=== PATIENT | female | born 1965 | race Caucasian/White ===

== ENCOUNTER 2017-08-08 10:57 | Emergency (ER) | payer SELFPAY ==
[~2017-08-08] VITALS: Ht 167.6 cm; Wt 117.9 kg
[~2017-08-08 10:57] MED LIST: ACCUNEB 0.1.25 MG/1 INH; ANAPROX DS550 MG PO; ATIVAN1 MG; ATIVAN1 MG PO; BENZTROPINE2 MG PO; BUPROPION HCL150 MG; CELEXA40 MG; CIPRO500 MG PO; DAYPRO600 M1 PO; DOXYCYCLINE100 M3 PO; FIORICET 325 MG1 TAB PO; FLAGYL500 MG PO; FLEXERIL10 MG PO; GEODON20 M1 PO; IMITREX20 MG NS; LAMICTAL100 MG PO; LOMOTIL 0.025 M1 TAB PO; MEDROL DOSEPAK4 MG PO; MOTRIN600 MG PO; MOTRIN800 MG PO; NEURONTIN600 MG PO; PRAVACHOL40 MG PO; PREDNISONE20 MG PO; PRILOSEC20 MG PO; PROVERA10 MG PO; ROBITUSSIN AC 110 ML PO; SAPHRIS10 MG SL; SEROQUEL300 MG PO; SOMA350 MG PO; SYNTHROID0.15 MG PO; SYNTHROID0.175 MG PO; TOPAMAX100 MG PO; TOPAMAX50 MG; VICODIN 500 MG-1 TAB PO; VICODIN ES 7501 TAB PO; ZOFRAN ODT4 MG SL; Zofran4 MG PO; [UNRECOGNIZED DRUG - OTHER]
[2017-08-08 11:06] VITALS: BP 154/84
[2017-08-08 11:44] LABS: BASO # 0.1 10*3/uL (0.0-0.1); BASO % 0.7 % (0.0-1.0); EOS # 0.1 10*3/uL (0.0-0.4); HEMATOCRIT 44.3 % (37.0-47.0); HEMOGLOBIN 14.6 g/dl (12.0-16.0); LYMPH # 2.8 10*3/uL (1.3-4.4); LYMPH % 22.7 % (27.0-41.0); MEAN CELL VOLUME 93.9 fl (81.0-99.0); MEAN CORPUSCULAR HGB 30.9 pg (27.0-31.0); MEAN PLATELET VOLUME 10.8 fl (9.6-12.3); MONO # 0.5 10*3/uL (0.1-1.0); MONO % 4.2 % (3.0-9.0); NEUT # 8.7 10*3/uL (2.3-7.9); NEUT % 70.7 % (47.0-73.0); PLATELET COUNT AUTOMATED 243 10*3/uL (130-400); RED BLOOD COUNT 4.72 10*6/uL (4.10-5.10); WHITE BLOOD COUNT 12.2 10*3/uL (4.8-10.8)
[2017-08-08 11:53] LABS: ACT PARTIAL THROMBO TIME 27.4 SECONDS (20.8-31.5)
[2017-08-08 12:02] LABS: ALBUMIN 3.7 gm/dl (3.1-4.5); ALKALINE PHOSPHATASE 84 U/L (45-117); BUN 4 mg/dl (7-24); CHLORIDE 105 mmol/L (98-107); CREATININE 0.96 mg/dL (0.55-1.02); LIPASE 106 U/L (73-393); MAGNESIUM 2.2 mg/dL (1.5-2.1); POTASSIUM 3.2 mmol/L (3.5-5.1); SGOT/AST 17 IU/L (3-35); SGPT/ALT 24 U/L (12-78); SODIUM 140 mmol/L (136-145)
[2017-08-08 12:16] LABS: TROPONIN I < 0.015 ng/ml (<0.045)
[2017-08-08 14:03] LABS: BILIRUBIN NEGATIVE (NEGATIVE); BLOOD TRACE-INTACT (NEGATIVE); CLARITY CLEAR (CLEAR); COLOR YELLOW (YELLOW); GLUCOSE NEGATIVE (NEGATIVE); KETONE NEGATIVE (NEGATIVE); LEUKO ESTERASE NEGATIVE (NEGATIVE); NITRITE NEGATIVE (NEGATIVE); PH 5.5 (5.0-9.0); SPECIFIC GRAVITY <= 1.005 (1.005-1.030); UROBILINOGEN 0.2 E.U./dl (0.2-1.0)
[2017-08-08 14:10] LABS: RBC 0-2 rbc/hpf (0-2)
[2017-08-08 14:11] LABS: BACTERIA 2+
[2017-08-08] MEDS ORDERED: PHENERGAN25 M3 PO (14:30)
== END 2017-08-08 15:15 | disposition home or self-care (01) ==
LOC: ED 10:57
PROVIDERS: Family Medicine Adult Medicine
DX: K52.9 Noninfective gastroenteritis and colitis, unspecified (principal); E03.9 Hypothyroidism, unspecified; E11.9 Type 2 diabetes mellitus without complications; J44.9 Chronic obstructive pulmonary disease, unspecified; F17.200 Nicotine dependence, unspecified, uncomplicated; Z88.2 Allergy status to sulfonamides; Z88.1 Allergy status to other antibiotic agents; Z91.030 Bee allergy status; Z88.8 Allergy status to other drugs, medicaments and biological substances; Z79.899 Other long term (current) drug therapy

== ENCOUNTER 2018-02-19 19:58 | Emergency (ER) | payer OTHER ==
[~2018-02-19] VITALS: Ht 167.6 cm; Wt 102.1 kg
[~2018-02-19 19:58] MED LIST changes: +PHENERGAN25 M3 PO
[2018-02-19 20:25] LABS: BILIRUBIN NEGATIVE (NEGATIVE); BLOOD 3+ (NEGATIVE); CLARITY SL CLOUDY (CLEAR); COLOR YELLOW (YELLOW); GLUCOSE NEGATIVE (NEGATIVE); KETONE NEGATIVE (NEGATIVE); LEUKO ESTERASE 2+ (NEGATIVE); NITRITE NEGATIVE (NEGATIVE); PH 6.5 (5.0-9.0); SPECIFIC GRAVITY <= 1.005 (1.005-1.030); UROBILINOGEN 0.2 E.U./dl (0.2-1.0)
[2018-02-19 20:36] LABS: BASO # 0.1 10*3/uL (0.0-0.1); BASO % 0.7 % (0.0-1.0); EOS # 0.2 10*3/uL (0.0-0.4); EOS % 1.4 % (1.0-4.0); HEMATOCRIT 41.8 % (37.0-47.0); HEMOGLOBIN 13.8 g/dl (12.0-16.0); LYMPH % 22.7 % (27.0-41.0); MEAN CELL VOLUME 90.9 fl (81.0-99.0); MEAN PLATELET VOLUME 10.6 fl (9.6-12.3); MONO # 0.7 10*3/uL (0.1-1.0); MONO % 5.5 % (3.0-9.0); NEUT # 9.3 10*3/uL (2.3-7.9); NEUT % 69.3 % (47.0-73.0); PLATELET COUNT AUTOMATED 227 10*3/uL (130-400); RED CELL DISTRI WIDTH 13.6 % (0-14.5); WHITE BLOOD COUNT 13.4 10*3/uL (4.8-10.8)
[2018-02-19 20:53] LABS: ALBUMIN 3.5 gm/dl (3.1-4.5); ALKALINE PHOSPHATASE 79 U/L (45-117); BUN 6 mg/dl (7-24); CHLORIDE 104 mmol/L (98-107); CREATININE 0.99 mg/dL (0.55-1.02); POTASSIUM 3.1 mmol/L (3.5-5.1); SGOT/AST 18 IU/L (3-35); SGPT/ALT 17 U/L (12-78); SODIUM 141 mmol/L (136-145); TOTAL PROTEIN 6.8 gm/dL (6.4-8.2)
[2018-02-19 21:02] LABS: BACTERIA 1+
[2018-02-19 21:05] LABS: WBC 51-100 wbc/hpf (0-5)
[2018-02-19 21:06] VITALS: BP 143/80
[2018-02-19 21:06] LABS: RBC 21-30 rbc/hpf (0-2)
[2018-02-19] MEDS ORDERED: MACROBID100 M1 PO (21:41)
== END 2018-02-19 21:50 | disposition home or self-care (01) ==
LOC: ED 19:58
PROVIDERS: Physician Assistant
DX: N39.0 Urinary tract infection, site not specified (principal); R31.9 Hematuria, unspecified; F17.200 Nicotine dependence, unspecified, uncomplicated; Z90.49 Acquired absence of other specified parts of digestive tract; Z98.890 Other specified postprocedural states; Z98.51 Tubal ligation status; Z79.899 Other long term (current) drug therapy; Z88.2 Allergy status to sulfonamides; Z88.1 Allergy status to other antibiotic agents; Z88.8 Allergy status to other drugs, medicaments and biological substances; Z91.030 Bee allergy status

== ENCOUNTER → 2018-06-17 | Outpatient (CLI) | payer OTHER ==
[~2018-06-17] MED LIST changes: +MACROBID100 M1 PO
== END | disposition home or self-care (01) ==
LOC: RAD 15:11
DX: M25.561 Pain in right knee (principal)

== ENCOUNTER → 2018-08-06 | Outpatient (CLI) | payer OTHER ==
[~2018-08-06] MED LIST changes: +DOXEPIN HCL25 MG PO; +PAROXETINE HCL10 MG PO; +PERCOCET 5-3251 EACH PO; +Zofran4 MG SL
== END | disposition home or self-care (01) ==
LOC: MRI 13:00
DX: S83.241A Other tear of medial meniscus, current injury, right knee, initial encounter (principal); M25.461 Effusion, right knee; X58.XXXA Exposure to other specified factors, initial encounter; Y93.89 Activity, other specified; Y92.89 Other specified places as the place of occurrence of the external cause; Y99.8 Other external cause status

== ENCOUNTER 2018-08-31 18:17 | Emergency (ER) | payer OTHER ==
[~2018-08-31] VITALS: Ht 167.6 cm; Wt 96.6 kg
[2018-08-31 18:17] VITALS: BP 130/68
[~2018-08-31 18:17] MED LIST changes: -DOXEPIN HCL25 MG PO; -PAROXETINE HCL10 MG PO; -PERCOCET 5-3251 EACH PO; -Zofran4 MG SL
[2018-10-08] MEDS ORDERED: DOXEPIN HCL25 MG PO (10:54)
[2018-10-08] MEDS ORDERED: PAROXETINE HCL10 MG PO (10:54)
[2018-10-16] MEDS ORDERED: PERCOCET 5-3251 EACH PO (09:30)
[2018-10-16] MEDS ORDERED: Zofran4 MG SL (09:31)
== END 2018-08-31 21:21 | disposition home or self-care (01) ==
LOC: ED 18:17
DX: S09.90XA Unspecified injury of head, initial encounter (principal); M54.5 Low back pain; M54.6 Pain in thoracic spine; M25.512 Pain in left shoulder; F17.200 Nicotine dependence, unspecified, uncomplicated; Z88.2 Allergy status to sulfonamides; Z88.1 Allergy status to other antibiotic agents; Z91.030 Bee allergy status; Z88.8 Allergy status to other drugs, medicaments and biological substances; Z79.899 Other long term (current) drug therapy; Z90.49 Acquired absence of other specified parts of digestive tract; W10.8XXA Fall (on) (from) other stairs and steps, initial encounter; Y93.89 Activity, other specified; Y92.89 Other specified places as the place of occurrence of the external cause; Y99.8 Other external cause status

== ENCOUNTER → 2018-10-08 | Outpatient (CLI) | payer OTHER ==
[~2018-10-08] MED LIST changes: +DOXEPIN HCL25 MG PO; +PAROXETINE HCL10 MG PO; +PERCOCET 5-3251 EACH PO; +Zofran4 MG SL
--- NOTE | ~2018-10-08 | EKG ---
[place], [place] ELECTROCARDIOGRAM REPORT NAME: ROBINSON FENG UNIT #: [id number] ROOM: DOCTOR: EPIPHANY DRAFT REPORT BIRTHDATE: [birth year] [facility] [place] Test Date: 2018-10-08 Test Time: 11:30:19 Pat Name: ROBINSON FENG Department: Room: Gender: F Watch Assembly Inspector: Edna Ramirez : 1965 Requested By: KRISTAN DELGADO Order Number: [id number] Reading MD: Rubio Alegria MD Measurements Intervals [place] Rate: 71 P: 35 FL: 161 QRS: -10 QRSD: 88 T: 31 QT: 402 QTc: 437 Interpretive Statements Sinus rhythm Baseline wander in lead(s) V1,V2,V5,V6 Electronically Signed On 10-08-2018 8:48:42 PST by Rubio Alegria MD CM:EKGRPT:ELECTROCARDIOGRAM REPORT [id number] KRISTAN MARTINES DRAFT REPORT KRISTAN DELGADO DO
[2018-10-08 11:34] LABS: BASO # 0.1 10*3/uL (0.0-0.1); BASO % 0.8 % (0.0-1.0); EOS # 0.1 10*3/uL (0.0-0.4); EOS % 0.9 % (1.0-4.0); HEMATOCRIT 44.6 % (37.0-47.0); LYMPH # 3.3 10*3/uL (1.3-4.4); LYMPH % 28.9 % (27.0-41.0); MEAN CELL VOLUME 93.9 fl (81.0-99.0); MEAN CORPUSCULAR HGB 31.6 pg (27.0-31.0); MEAN CORPUSCULAR HGB CONC 33.6 g/dl (33.0-37.0); MEAN PLATELET VOLUME 10.5 fl (9.6-12.3); MONO # 0.6 10*3/uL (0.1-1.0); MONO % 5.5 % (3.0-9.0); NEUT # 7.2 10*3/uL (2.3-7.9); NEUT % 63.4 % (47.0-73.0); PLATELET COUNT AUTOMATED 257 10*3/uL (130-400); RED BLOOD COUNT 4.75 10*6/uL (4.10-5.10); RED CELL DISTRI WIDTH 12.2 % (0-14.5); WHITE BLOOD COUNT 11.4 10*3/uL (4.8-10.8)
[2018-10-08 11:53] LABS: BILIRUBIN NEGATIVE (NEGATIVE); BLOOD TRACE-INTACT (NEGATIVE); CLARITY CLOUDY (CLEAR); COLOR YELLOW (YELLOW); GLUCOSE NEGATIVE (NEGATIVE); KETONE NEGATIVE (NEGATIVE); LEUKO ESTERASE 1+ (NEGATIVE); NITRITE POSITIVE (NEGATIVE); UROBILINOGEN 0.2 E.U./dl (0.2-1.0)
[2018-10-08 12:01] LABS: ALBUMIN 3.9 gm/dl (3.1-4.5); ALKALINE PHOSPHATASE 81 U/L (45-117); BUN 7 mg/dl (7-24); CHLORIDE 102 mmol/L (98-107); CREATININE 0.91 mg/dL (0.55-1.02); POTASSIUM 4.5 mmol/L (3.5-5.1); SGOT/AST 13 IU/L (3-35); SGPT/ALT 18 U/L (12-78); SODIUM 136 mmol/L (136-145); TOTAL PROTEIN 7.2 gm/dL (6.4-8.2)
[2018-10-08 13:16] LABS: BACTERIA 4+; EPITHELIAL CELLS 20-30; WBC 31-40 wbc/hpf (0-5)
== END | disposition home or self-care (01) ==
LOC: LAB 10:16
PROVIDERS: Orthopaedic Surgery
DX: Z01.818 Encounter for other preprocedural examination (principal); S83.241A Other tear of medial meniscus, current injury, right knee, initial encounter; X58.XXXA Exposure to other specified factors, initial encounter; Y93.89 Activity, other specified; Y92.89 Other specified places as the place of occurrence of the external cause; Y99.8 Other external cause status

== ENCOUNTER → 2018-10-15 | Outpatient (CLI) | payer OTHER ==
[2018-10-15 13:56] LABS: BILIRUBIN NEGATIVE (NEGATIVE); BLOOD TRACE-LYSED (NEGATIVE); CLARITY CLEAR (CLEAR); COLOR YELLOW (YELLOW); GLUCOSE NEGATIVE (NEGATIVE); KETONE NEGATIVE (NEGATIVE); LEUKO ESTERASE NEGATIVE (NEGATIVE); NITRITE NEGATIVE (NEGATIVE); SPECIFIC GRAVITY <= 1.005 (1.005-1.030); UROBILINOGEN 0.2 E.U./dl (0.2-1.0)
[2018-10-15 14:33] LABS: RBC 0-2 rbc/hpf (0-2)
[2018-10-15 14:34] LABS: BACTERIA TRACE; EPITHELIAL CELLS 16-20; WBC 0-2 wbc/hpf (0-5)
== END | disposition home or self-care (01) ==
LOC: LAB 11:28
PROVIDERS: Orthopaedic Surgery
DX: N39.0 Urinary tract infection, site not specified (principal)

== ENCOUNTER → 2018-10-16 | Day surgery (SDC) | payer OTHER ==
[2018-10-16] VITALS (7 sets, daily range): BP systolic 122–157; BP diastolic 65–87
== END ==
LOC: CANPRESDC → SDC 10-08 10:15
DX: S83.281A Other tear of lateral meniscus, current injury, right knee, initial encounter (principal); S83.241A Other tear of medial meniscus, current injury, right knee, initial encounter; Z88.1 Allergy status to other antibiotic agents; Z88.8 Allergy status to other drugs, medicaments and biological substances; F17.210 Nicotine dependence, cigarettes, uncomplicated; F32.0 Major depressive disorder, single episode, mild; F41.0 Panic disorder [episodic paroxysmal anxiety]; J44.9 Chronic obstructive pulmonary disease, unspecified; Z98.890 Other specified postprocedural states; Z87.442 Personal history of urinary calculi; W19.XXXA Unspecified fall, initial encounter; Y92.89 Other specified places as the place of occurrence of the external cause; Y93.89 Activity, other specified; Y99.8 Other external cause status; M22.41 Chondromalacia patellae, right knee

== ENCOUNTER 2018-11-28 20:53 | Emergency (ER) | payer OTHER ==
[~2018-11-28] VITALS: Ht 167.6 cm; Wt 96.2 kg
[~2018-11-28 20:53] MED LIST changes: +SYNTHROID,LEV175 MCG PO; -SYNTHROID0.15 MG PO
[2018-11-28 20:56] VITALS: BP 113/68
[2018-11-28] MEDS ORDERED: PAXIL20 M1 PO (21:06)
[2018-11-28] MEDS ORDERED: ATARAX,VISTARIL50 MG PO (21:07)
[2018-11-28] MEDS ORDERED: IBU800 MG PO (21:08)
[2018-11-28] MEDS ORDERED: CYCLOBENZAPRINE10 MG PO (22:49)
[2019-01-23] MEDS ORDERED: ATARAX,VISTARIL50 MG PO (01:39)
[2019-01-23] MEDS ORDERED: K-TAB20 MEQ PO (01:39)
[2019-01-23] MEDS ORDERED: KEFLEX500 M1 PO (01:39)
== END 2018-11-28 22:54 | disposition home or self-care (01) ==
LOC: ED 20:53
DX: M54.42 Lumbago with sciatica, left side (principal); M79.605 Pain in left leg; J44.9 Chronic obstructive pulmonary disease, unspecified; E66.01 Morbid (severe) obesity due to excess calories; Z88.2 Allergy status to sulfonamides; Z88.1 Allergy status to other antibiotic agents; Z91.030 Bee allergy status; Z79.899 Other long term (current) drug therapy; Z90.49 Acquired absence of other specified parts of digestive tract

== ENCOUNTER 2019-03-09 14:50 | Emergency (ER) | payer OTHER ==
[~2019-03-09] VITALS: Ht 167.6 cm; Wt 89.4 kg
[~2019-03-09 14:50] MED LIST changes: +ATARAX,VISTARIL50 MG PO; +CYCLOBENZAPRINE10 MG PO; +IBU800 MG PO; +K-TAB20 MEQ PO; +KEFLEX500 M1 PO; +PAXIL20 M1 PO
[2019-03-09 14:52] VITALS: BP 141/77
[2019-03-09] MEDS ORDERED: PREDNISONE20 M1 PO (15:33)
[2019-03-09] MEDS ORDERED: NAPROSYN500 MG PO (15:33)
[2019-03-09] MEDS ORDERED: ROBAXIN500 M1 PO (15:33)
== END 2019-03-09 16:09 | disposition home or self-care (01) ==
LOC: ED 14:50
DX: M54.5 Low back pain (principal); G89.29 Other chronic pain; Z79.899 Other long term (current) drug therapy; Z88.2 Allergy status to sulfonamides; Z88.1 Allergy status to other antibiotic agents; Z88.8 Allergy status to other drugs, medicaments and biological substances; Z91.030 Bee allergy status

== ENCOUNTER 2019-08-19 21:37 | Emergency (ER) | payer OTHER ==
[~2019-08-19] VITALS: Ht 167.6 cm; Wt 114.1 kg
[~2019-08-19 21:37] MED LIST changes: +NAPROSYN500 MG PO; +PREDNISONE20 M1 PO; +ROBAXIN500 M1 PO
[2019-08-19 21:38] VITALS: BP 141/72
[2019-08-19 22:47] LABS: BASO # 0.1 10*3/uL (0.0-0.1); BASO % 1.1 % (0.0-1.0); EOS # 0.2 10*3/uL (0.0-0.4); EOS % 1.8 % (1.0-4.0); HEMATOCRIT 39.1 % (37.0-47.0); LYMPH # 4.2 10*3/uL (1.3-4.4); LYMPH % 35.1 % (27.0-41.0); MEAN CELL VOLUME 99.7 fl (81.0-99.0); MEAN CORPUSCULAR HGB 33.2 pg (27.0-31.0); MEAN CORPUSCULAR HGB CONC 33.2 g/dl (33.0-37.0); MEAN PLATELET VOLUME 10.2 fl (9.6-12.3); MONO # 0.7 10*3/uL (0.1-1.0); MONO % 6.1 % (3.0-9.0); NEUT # 6.6 10*3/uL (2.3-7.9); NUCLEATED RED BLOOD CELL 0.2 % (0.0-0.0); PLATELET COUNT AUTOMATED 235 10*3/uL (130-400); RED BLOOD COUNT 3.92 10*6/uL (4.10-5.10); RED CELL DISTRI WIDTH 14.7 % (0-14.5); WHITE BLOOD COUNT 11.9 10*3/uL (4.8-10.8)
[2019-08-19 23:02] LABS: ALBUMIN 3.8 gm/dl (3.1-4.5); ALKALINE PHOSPHATASE 67 U/L (45-117); BUN 19 mg/dl (7-24); CHLORIDE 106 mmol/L (98-107); CREATININE 1.27 mg/dL (0.55-1.02); LIPASE 154 U/L (73-393); POTASSIUM 3.3 mmol/L (3.5-5.1); SGOT/AST 15 IU/L (3-35); SGPT/ALT 23 U/L (12-78); SODIUM 140 mmol/L (136-145); TOTAL PROTEIN 6.8 gm/dL (6.4-8.2)
[2019-08-19 23:03] LABS: TROPONIN I < 0.015 ng/ml (<0.045)
[2019-08-20] MEDS ORDERED: ZOFRAN4 MG PO (00:15)
== END 2019-08-20 00:50 | disposition home or self-care (01) ==
LOC: ED 21:37
PROVIDERS: Emergency Medicine Emergency Medical Services
DX: K52.9 Noninfective gastroenteritis and colitis, unspecified (principal); R05 Cough; R09.89 Other specified symptoms and signs involving the circulatory and respiratory systems; R09.81 Nasal congestion; J44.9 Chronic obstructive pulmonary disease, unspecified; Z88.2 Allergy status to sulfonamides; Z88.8 Allergy status to other drugs, medicaments and biological substances; Z91.030 Bee allergy status; Z79.2 Long term (current) use of antibiotics; Z79.899 Other long term (current) drug therapy

== ENCOUNTER 2020-08-23 12:43 | Emergency (ER) | payer BC ==
[~2020-08-23] VITALS: Ht 167.6 cm; Wt 122.5 kg
[~2020-08-23 12:43] MED LIST changes: +ZOFRAN4 MG PO
[2020-08-23 12:53] VITALS: BP 145/88
[2020-08-23 13:32] LABS: BASO # 0.1 10*3/uL (0.0-0.1); BASO % 0.8 % (0.0-1.0); EOS # 0.2 10*3/uL (0.0-0.4); EOS % 1.5 % (1.0-4.0); HEMATOCRIT 44.7 % (37.0-47.0); LYMPH # 2.8 10*3/uL (1.3-4.4); LYMPH % 25.5 % (27.0-41.0); MEAN CORPUSCULAR HGB 31.7 pg (27.0-31.0); MEAN CORPUSCULAR HGB CONC 32.7 g/dl (33.0-37.0); MEAN PLATELET VOLUME 10.5 fl (9.6-12.3); MONO # 0.5 10*3/uL (0.1-1.0); NEUT # 7.2 10*3/uL (2.3-7.9); NEUT % 66.3 % (47.0-73.0); PLATELET COUNT AUTOMATED 244 10*3/uL (130-400); RED BLOOD COUNT 4.61 10*6/uL (4.10-5.10); RED CELL DISTRI WIDTH 13.8 % (0-14.5); WHITE BLOOD COUNT 10.9 10*3/uL (4.8-10.8)
[2020-08-23 13:47] LABS: ALBUMIN 3.7 gm/dl (3.1-4.5); ALKALINE PHOSPHATASE 76 U/L (45-117); BUN 8 mg/dl (7-24); CHLORIDE 106 mmol/L (98-107); CREATININE 0.91 mg/dL (0.55-1.02); POTASSIUM 3.2 mmol/L (3.5-5.1); SGOT/AST 13 IU/L (3-35); SGPT/ALT 25 U/L (12-78); SODIUM 140 mmol/L (136-145); TOTAL PROTEIN 7.2 gm/dL (6.4-8.2)
[2020-08-23 14:27] LABS: BILIRUBIN Negative (Negative); BLOOD Trace-Lysed (Negative); CLARITY Cloudy (Clear); COLOR Yellow (Yellow); GLUCOSE Negative (Negative); KETONE Negative (Negative); LEUKO ESTERASE Trace (Negative); NITRITE Negative (Negative)
[2020-08-23 14:42] LABS: BACTERIA TRACE
[2020-08-23] MEDS ORDERED: REGLAN10 M1 PO (14:54)
[2020-08-23] MEDS ORDERED: VENTOLIN 02.5 MG/3 M INH (14:54)
== END 2020-08-23 14:58 | disposition home or self-care (01) ==
LOC: ED 12:43
PROVIDERS: Emergency Medicine
DX: K52.9 Noninfective gastroenteritis and colitis, unspecified (principal); J40 Bronchitis, not specified as acute or chronic; J44.9 Chronic obstructive pulmonary disease, unspecified; F41.9 Anxiety disorder, unspecified; F31.9 Bipolar disorder, unspecified; Z20.828 Contact with and (suspected) exposure to other viral communicable diseases; Z79.899 Other long term (current) drug therapy; Z88.2 Allergy status to sulfonamides; Z91.030 Bee allergy status

== ENCOUNTER 2020-12-09 18:50 | Emergency (ER) | payer BC ==
[~2020-12-09] VITALS: Ht 66 cm; Wt 111.1 kg
[~2020-12-09 18:50] MED LIST changes: +REGLAN10 M1 PO; +VENTOLIN 02.5 MG/3 M INH
[2020-12-09 19:03] VITALS: BP 177/92
[2020-12-09] MEDS ORDERED: PREDNISONE20 M1 PO (21:47)
== END 2020-12-09 21:58 | disposition home or self-care (01) ==
LOC: ED 18:50
DX: S39.012A Strain of muscle, fascia and tendon of lower back, initial encounter (principal); R20.0 Anesthesia of skin; J44.9 Chronic obstructive pulmonary disease, unspecified; F41.9 Anxiety disorder, unspecified; E07.9 Disorder of thyroid, unspecified; F31.9 Bipolar disorder, unspecified; F17.200 Nicotine dependence, unspecified, uncomplicated; Z88.2 Allergy status to sulfonamides; Z88.1 Allergy status to other antibiotic agents; Z91.030 Bee allergy status; Z79.2 Long term (current) use of antibiotics; Z79.899 Other long term (current) drug therapy; Z98.51 Tubal ligation status; Z90.49 Acquired absence of other specified parts of digestive tract; Z98.890 Other specified postprocedural states; X58.XXXA Exposure to other specified factors, initial encounter; Y93.89 Activity, other specified; Y92.89 Other specified places as the place of occurrence of the external cause; Y99.8 Other external cause status

== ENCOUNTER 2021-02-24 19:57 | Emergency (ER) | payer BC ==
[~2021-02-24] VITALS: Ht 167.6 cm; Wt 109.8 kg
[2021-02-24 20:06] VITALS: BP 131/90
[2021-02-24] MEDS ORDERED: NAPROXEN250 MG PO (20:27)
[2021-02-24] MEDS ORDERED: ROBAXIN-750750 MG PO (20:27)
== END 2021-02-24 20:21 | disposition home or self-care (01) ==
LOC: ED 19:57
DX: M54.41 Lumbago with sciatica, right side (principal); F32.9 Major depressive disorder, single episode, unspecified; F41.9 Anxiety disorder, unspecified; Z88.8 Allergy status to other drugs, medicaments and biological substances; Z88.2 Allergy status to sulfonamides; Z91.030 Bee allergy status; Z79.899 Other long term (current) drug therapy; Z98.890 Other specified postprocedural states; Z98.51 Tubal ligation status; Z90.49 Acquired absence of other specified parts of digestive tract

== ENCOUNTER 2021-02-28 11:11 | Emergency (ER) | payer BC ==
[~2021-02-28] VITALS: Wt 109.8 kg
[~2021-02-28 11:11] MED LIST changes: +NAPROXEN250 MG PO; +ROBAXIN-750750 MG PO
[2021-02-28 11:23] VITALS: BP 105/53
[2021-02-28] MEDS ORDERED: ROBAXIN-750750 MG PO (13:20)
[2021-02-28] MEDS ORDERED: IBUPROFEN600 MG PO (13:20)
== END 2021-02-28 13:21 | disposition home or self-care (01) ==
LOC: ED 11:11
DX: M54.42 Lumbago with sciatica, left side (principal); Z88.8 Allergy status to other drugs, medicaments and biological substances; Z88.2 Allergy status to sulfonamides; Z91.030 Bee allergy status; Z79.899 Other long term (current) drug therapy; Z87.51 Personal history of pre-term labor; Z90.49 Acquired absence of other specified parts of digestive tract; Z98.890 Other specified postprocedural states

== ENCOUNTER 2022-06-30 18:45 | Emergency (ER) | payer BC ==
[~2022-06-30 18:45] MED LIST changes: +IBUPROFEN600 MG PO
== END 2022-06-30 20:30 | disposition left against medical advice (07) ==
LOC: ED 18:45
DX: Z53.21 Procedure and treatment not carried out due to patient leaving prior to being seen by health care provider (principal)

== ENCOUNTER 2023-09-13 16:40 | Emergency (ER) | payer BC ==
[~2023-09-13] VITALS: Ht 167.6 cm; Wt 82.6 kg
[2023-09-13 17:25] VITALS: BP 145/73
[2023-09-13 17:40] LABS: BASO # 0.1 10*3/uL (0.0-0.1); BASO % 1.1 % (0.0-1.0); EOS # 0.3 10*3/uL (0.0-0.4); EOS % 3.1 % (1.0-4.0); HEMATOCRIT 40.5 % (37.0-47.0); LYMPH # 3.6 10*3/uL (1.3-4.4); LYMPH % 38.7 % (27.0-41.0); MEAN CELL VOLUME 91.4 fl (81.0-99.0); MEAN CORPUSCULAR HGB 30.7 pg (27.0-31.0); MEAN CORPUSCULAR HGB CONC 33.6 g/dl (33.0-37.0); MEAN PLATELET VOLUME 9.7 fl (9.6-12.3); MONO # 0.6 10*3/uL (0.1-1.0); MONO % 6.3 % (3.0-9.0); NEUT # 4.7 10*3/uL (2.3-7.9); NEUT % 50.4 % (47.0-73.0); PLATELET COUNT AUTOMATED 265 10*3/uL (130-400); RED BLOOD COUNT 4.43 10*6/uL (4.10-5.10); RED CELL DISTRI WIDTH 12.4 % (0-14.5); WHITE BLOOD COUNT 9.4 10*3/uL (4.8-10.8)
[2023-09-13 18:01] LABS: ALKALINE PHOSPHATASE 74 U/L (46-116); BUN 9 mg/dl (9-23); CHLORIDE 110 mmol/L (98-107); SGPT/ALT 17 U/L (5-49); TOTAL PROTEIN 6.4 gm/dL (6.0-8.0)
[2023-09-13 18:18] LABS: BILIRUBIN Negative (Negative); BLOOD Negative (Negative); CLARITY Cloudy (Clear); COLOR Yellow (Yellow); GLUCOSE Negative (Negative); KETONE Trace (Negative); LEUKO ESTERASE 2+ (Negative); NITRITE Negative (Negative); PH 5.5 (4.5-8.0); SPECIFIC GRAVITY 1.025 (1.001-1.030)
[2023-09-13 18:26] LABS: BACTERIA 3+; HYALINE CAST 0-2; WBC 21-30 wbc/hpf (0-5)
[2023-09-13] MEDS ORDERED: CIPRO500 MG PO (18:33)
[2023-09-13] MEDS ORDERED: MELOXICAM15 MG PO (18:33)
== END 2023-09-13 19:35 | disposition home or self-care (01) ==
LOC: ED 16:40
PROVIDERS: Emergency Medicine
DX: N39.0 Urinary tract infection, site not specified (principal); J44.9 Chronic obstructive pulmonary disease, unspecified; Z88.2 Allergy status to sulfonamides; Z88.1 Allergy status to other antibiotic agents; Z88.8 Allergy status to other drugs, medicaments and biological substances; Z91.030 Bee allergy status; Z79.899 Other long term (current) drug therapy; Z98.51 Tubal ligation status; Z90.49 Acquired absence of other specified parts of digestive tract; Z98.890 Other specified postprocedural states